=== PATIENT | male | born 1960 | race Caucasian/White ===

== ENCOUNTER 2016-09-21 16:02 | Emergency (ER) | payer OTHER ==
[2016-09-21 16:11] VITALS: BP 153/94
[2016-09-21] MEDS ORDERED: DEXAMETHASONE 10 MG/ML VIAL PO STA (16:16)
[2016-09-21] MEDS ORDERED: CETIRIZINE 10 MG TABLET PO STA (16:16)
--- NOTE | 2016-09-21 16:16 | ED Physician Documentation ---
History of Present Illness - Stated complaint Stated Complaint: RASH - Chief complaint Chief Complaint: General - History obtained from History obtained from: Patient - History of Present Illness Timing: Other (He has a history of seasonal allergies. He just got back from the [facility], on return home he developed some facial swelling and rash is that there is no fever. He does have a runny nose. No sore throat or cough or shortness of breath. He has type II diabetes and is very well controlled.) Review of Systems Constitutional: denies: Fever, Chills Nose: reports: Rhinorrhea / runny nose. denies: Congestion Throat: denies: Sore throat PD PAST MEDICAL HISTORY - Past Medical History Cardiovascular: Hypertension Respiratory: None Endocrine/Autoimmune: Type 2 diabetes GI: None : None Musculoskeletal: None Derm: None - Present Medications Home Medications: Ambulatory Orders Medication Instructions Recorded Confirmed Lisinopril [Zestril] 10 mg PO DAILY 01/18/13 09/21/16 hydroCHLOROthiazide [Hydrodiuril] 25 mg PO DAILY 01/18/13 09/21/16 Metformin HCl 500 mg PO BIDWM 05/31/14 09/21/16 Cetirizine [ZyrTEC] 10 mg PO DAILY #10 tablet 09/21/16 Fluticasone [Flonase] 1 sprays ESAU BID #1 bottle 09/21/16 - Allergies Allergies/Adverse Reactions: Allergies Allergy/AdvReac Type Severity Reaction Status Date / Time No Known Drug Allergies Allergy Verified 09/21/16 16:10 - Social History Smoking Status: Never smoker PD ED PE NORMAL - Vitals Vital signs reviewed: Yes - General General: Alert and oriented X 3, No acute distress - HEENT HEENT: PERRL, EOMI, Pharynx benign - Neck Neck: Supple, no meningeal sign, No bony TTP - Cardiac Cardiac: RRR, No murmur - Respiratory Respiratory: No respiratory distress, Clear bilaterally - Abdomen Abdomen: Non tender - Derm Derm: No rash - Neuro Neuro: Alert and oriented X 3, Normal speech - Psych Psych: Normal mood, Normal affect Results - Vitals Vitals: Vital Signs - 24 hr 09/21/16 16:07 Temperature 36.3 C L Heart Rate 80 Respiratory 16 Rate Blood Pressure 153/94 H O2 Saturation 96 Oxygen O2 Source Room air PD MEDICAL DECISION MAKING - ED course ED course: Normal exam here. Symptoms most consistent with seasonal allergies on return home from the [facility]. No evidence of infectious etiology/fever. Departure - Departure Disposition: 01 Home, Self Care Clinical Impression: Seasonal allergic rhinitis Qualifiers: Allergic rhinitis trigger: unspecified Qualified Code(s): J30.2 - Other seasonal allergic rhinitis Condition: Good Record reviewed to determine appropriate education?: Yes Instructions: ED Allergy Seasonal Prescriptions: Fluticasone [Flonase] 1 sprays ESAU BID #1 bottle Cetirizine [ZyrTEC] 10 mg PO DAILY #10 tablet Comments: RECHECK WITH YOUR DOCTOR IN 1 WEEK, RECHECK BLOOD PRESSURE AT THAT TIME, IT WAS 153/93 Discharge Date/Time: 09/21/16 16:31
[2016-09-21] MEDS ORDERED: CHERRY SYRUP 10 ML UDC PO ONE (16:19)
[2016-09-21] MEDS ORDERED: DEXAMETHASONE 10 MG/ML VIAL ONE (16:19)
[2016-09-21] MEDS ORDERED: CETIRIZINE 10 MG TABLET ONE (16:19)
== END 2016-09-21 16:28 | disposition home or self-care (01) ==
LOC: ED 16:02
DX: J30.2 Other seasonal allergic rhinitis (principal); I10 Essential (primary) hypertension; E11.9 Type 2 diabetes mellitus without complications; Z79.84 Long term (current) use of oral hypoglycemic drugs
CPT/HCPCS: 99283; A9270

== ENCOUNTER 2016-12-16 17:48 | Outpatient (CLI) | payer OTHER ==
[2016-12-16 13:33] LABS: ALBUMIN/GLOBULIN RATIO 1.2 (1.0-2.2); BILIRUBIN,TOTAL 1.1 mg/dL (0.2-1.0); CALCIUM 9.4 mg/dL (8.5-10.3); CREATININE 0.9 mg/dL (0.6-1.2); POTASSIUM 3.8 mmol/L (3.5-5.0)
[2016-12-16 13:40] LABS: HEMOGLOBIN A1C 0.78 g/dL
== END 2016-12-16 17:49 | disposition home or self-care (01) ==
LOC: LAB.WCP 17:48
PROVIDERS: ATTEND Family Medicine
DX: E78.5 Hyperlipidemia, unspecified (principal)
CPT/HCPCS: 36415; 80053; 82043; 83036

== ENCOUNTER 2017-07-13 08:46 | Outpatient (CLI) | payer OTHER ==
[2017-07-13 13:32] LABS: HB2 TOTAL 15.5 g/dL; HEMOGLOBIN A1C 0.74 g/dL; HEMOGLOBIN A1C % 6.5 % (4.6-6.2)
[2017-07-13 13:50] LABS: ALBUMIN 3.9 g/dL (3.2-5.5); ALBUMIN/GLOBULIN RATIO 1.1 (1.0-2.2); ALKALINE PHOSPHATASE 55 IU/L (42-121); ALT ALANINE AMINOTRANSFERASE 39 IU/L (10-60); AST ASPARTATE AMINOTRANSFERASE 33 IU/L (10-42); BILIRUBIN,TOTAL 0.9 mg/dL (0.2-1.0); BUN - BLOOD UREA NITROGEN 14 mg/dL (6-20); CARBON DIOXIDE - CO2 26 mmol/L (21-32); CHLORIDE 101 mmol/L (101-111); CHOL/HDL RATIO 4.3 (<5.0); CHOLESTEROL 173 mg/dL; CREATININE 0.8 mg/dL (0.6-1.2); GFR - MDRD 101 (>89); GLUCOSE 127 mg/dL (70-100); HDL CHOLESTEROL 40 mg/dL; LDL CHOLESTEROL,CALCULATED 117 mg/dL; LDL/HDL RATIO 2.9 (<3.6); SODIUM 136 mmol/L (135-145); TOTAL PROTEIN 7.4 g/dL (6.7-8.2); VLDL CHOLESTEROL 16 mg/dL
== END 2017-07-13 08:47 | disposition home or self-care (01) ==
LOC: LAB.WCP 08:46
PROVIDERS: ATTEND Family Medicine
DX: E78.5 Hyperlipidemia, unspecified (principal); J30.9 Allergic rhinitis, unspecified; E11.9 Type 2 diabetes mellitus without complications; I10 Essential (primary) hypertension; Z12.5 Encounter for screening for malignant neoplasm of prostate
CPT/HCPCS: 36415; 80053; 80061; 82043; 83036; 83721; 84153

== ENCOUNTER 2018-01-12 07:40 | Outpatient (CLI) | payer OTHER ==
[2018-01-12 12:33] LABS: BASOPHILS # (AUTO) 0.1 10^3/uL (0.0-0.1); BASOPHILS % (AUTO) 0.8 %; EOSINOPHILS # (AUTO) 0.3 10^3/uL (0.0-0.7); EOSINOPHILS % (AUTO) 4.9 %; HGB - HEMOGLOBIN 14.3 g/dL (14.0-18.0); LYMPHOCYTES % (AUTO) 31.3 %; MEAN CORPUSCULAR HEMOGLOBIN 31.2 pg (27.0-31.0); MEAN CORPUSCULAR HGB CONC 34.6 g/dL (32.0-36.0); MEAN CORPUSCULAR VOLUME 90.2 fL (80.0-94.0); MEAN PLATELET VOLUME 8.2 fL (7.4-11.4); MONOCYTES # (AUTO) 0.5 10^3/uL (0.0-1.0); MONOCYTES % (AUTO) 7.3 %; NEUTROPHILS # (AUTO) 3.6 10^3/uL (1.5-6.6); NEUTROPHILS % (AUTO) 55.7 %; PLT - PLATELET COUNT 190 10^3/uL (130-450); RED BLOOD COUNT 4.59 10^6/uL (4.70-6.10); RED CELL DISTRIBUTION WIDTH 12.9 % (12.0-15.0); WHITE BLOOD COUNT 6.5 x10^3/uL (4.8-10.8)
[2018-01-12 13:46] LABS: HB2 TOTAL 15.4 g/dL; HEMOGLOBIN A1C 0.76 g/dL; HEMOGLOBIN A1C % 6.7 % (4.6-6.2)
[2018-01-12 14:09] LABS: ALBUMIN 3.9 g/dL (3.2-5.5); ALBUMIN/GLOBULIN RATIO 1.2 (1.0-2.2); ALKALINE PHOSPHATASE 59 IU/L (42-121); ALT ALANINE AMINOTRANSFERASE 44 IU/L (10-60); AST ASPARTATE AMINOTRANSFERASE 32 IU/L (10-42); BILIRUBIN,TOTAL 0.6 mg/dL (0.2-1.0); BUN - BLOOD UREA NITROGEN 16 mg/dL (6-20); CARBON DIOXIDE - CO2 25 mmol/L (21-32); CHLORIDE 99 mmol/L (101-111); CHOLESTEROL 171 mg/dL; CREATININE 0.9 mg/dL (0.6-1.2); GFR - MDRD 88 (>89); GLUCOSE 118 mg/dL (70-100); HDL CHOLESTEROL 43 mg/dL; LDL CHOLESTEROL,CALCULATED 109 mg/dL; LDL/HDL RATIO 2.5 (<3.6); SODIUM 133 mmol/L (135-145); TOTAL PROTEIN 7.1 g/dL (6.7-8.2); VLDL CHOLESTEROL 19 mg/dL
== END 2018-01-12 07:41 | disposition home or self-care (01) ==
LOC: LAB.WCP 07:40
PROVIDERS: ATTEND Family Medicine
DX: E11.9 Type 2 diabetes mellitus without complications (principal)
CPT/HCPCS: 36415; 80053; 80061; 82043; 83036; 83721; 84443; 85025

== ENCOUNTER 2018-08-23 08:00 | Outpatient (CLI) | payer OTHER ==
[2018-08-23 12:23] LABS: BASOPHILS % (AUTO) 0.6 %; EOSINOPHILS # (AUTO) 0.4 10^3/uL (0.0-0.7); EOSINOPHILS % (AUTO) 4.5 %; HGB - HEMOGLOBIN 15.6 g/dL (14.0-18.0); LYMPHOCYTES # (AUTO) 2.5 10^3/uL (1.5-3.5); LYMPHOCYTES % (AUTO) 30.9 %; MEAN CORPUSCULAR HEMOGLOBIN 30.1 pg (27.0-31.0); MEAN CORPUSCULAR HGB CONC 33.5 g/dL (32.0-36.0); MEAN CORPUSCULAR VOLUME 89.6 fL (80.0-94.0); MEAN PLATELET VOLUME 8.4 fL (7.4-11.4); MONOCYTES # (AUTO) 0.6 10^3/uL (0.0-1.0); MONOCYTES % (AUTO) 7.7 %; NEUTROPHILS # (AUTO) 4.6 10^3/uL (1.5-6.6); NEUTROPHILS % (AUTO) 56.3 %; PLT - PLATELET COUNT 208 10^3/uL (130-450); WHITE BLOOD COUNT 8.2 x10^3/uL (4.8-10.8)
[2018-08-23 12:54] LABS: BILIRUBIN,TOTAL 1.2 mg/dL (0.2-1.0); CALCIUM 9.3 mg/dL (8.5-10.3); CREATININE 0.8 mg/dL (0.6-1.2)
[2018-08-23 13:12] LABS: HB2 TOTAL 16.8 g/dL; HEMOGLOBIN A1C 1.03 g/dL; HEMOGLOBIN A1C % 7.8 % (4.6-6.2)
== END 2018-08-23 23:59 | disposition home or self-care (01) ==
LOC: LAB.WCP 08:00
PROVIDERS: ATTEND Family Medicine
DX: E78.5 Hyperlipidemia, unspecified (principal); Z00.00 Encounter for general adult medical examination without abnormal findings; E11.9 Type 2 diabetes mellitus without complications; I10 Essential (primary) hypertension; Z12.5 Encounter for screening for malignant neoplasm of prostate
CPT/HCPCS: 36415; 80053; 82043; 83036; 84153; 84443; 85025

== ENCOUNTER 2018-09-06 12:10 | Outpatient (CLI) | payer OTHER ==
--- NOTE | 2018-09-06 17:31 | Ultrasound Report ---
Reason: NON-ALCOHOLIC FATTY LIVER Procedure Date: 09/06/2018 Accession Number: [id number] / [id number] Procedure: US - Abdomen Limited CPT Code: FULL RESULT: EXAM: ABDOMEN ULTRASOUND LIMITED, RUQ EXAM DATE: 09/06/2018 12:49 PM. CLINICAL HISTORY: NON-ALCOHOLIC FATTY LIVER. COMPARISON: None. TECHNIQUE: Real-time scanning was performed with static images obtained. FINDINGS: Liver: Normal in size and increased in echotexture. 16.2 cm. Main portal vein flow: Hepatopetal. Gallbladder: Normal. No stones, wall thickening, or sonographic Mendez's sign. Biliary System: CBD measures 2.7 mm. No intrahepatic or extrahepatic ductal dilatation. Free fluid: None. Right kidney: 11.6 cm longitudinally, unremarkable appearance IMPRESSION: 1. No cholelithiasis or cholecystitis. 2. Increased hepatic echogenicity consistent with fatty infiltration. RAD[facility]
== END 2018-09-06 12:11 | disposition home or self-care (01) ==
LOC: DI 12:10
PROVIDERS: ATTEND Family Medicine
DX: K76.0 Fatty (change of) liver, not elsewhere classified (principal)
CPT/HCPCS: 76705